=== PATIENT | female | born 1975 | race Caucasian/White ===

== ENCOUNTER 2018-08-09 18:58 | Emergency (ER) | payer MEDICAID ==
[~2018-08-09] VITALS: Ht 152.4 cm; Wt 69.3 kg
[~2018-08-09 18:58] MED LIST: CALC600T5 PO; FIORICET PO; FURO20TA3 PO; NIFE30TA66 PO; PRENAT PO
[2018-08-09 19:33] VITALS: Ht 152.4 cm; Wt 69.3 kg
[2018-08-09] MEDS ORDERED: KETOROLAC 30 MG INJ IM STA (21:34)
[2018-08-09] MEDS ORDERED: ONDANSETRON (ODT) 4 MG TAB ODT STA (21:34)
[2018-08-09] MEDS ORDERED: BUTA1CAP38 PO (22:17)
[2018-08-09] MEDS ORDERED: IBUP-1542 PO (22:17)
[2018-08-09] MEDS ORDERED: ONDA4TAB14 PO (22:18)
--- NOTE | 2018-08-09 22:21 | ERD ---
ER Documentation Chief Complaint Chief Complaint right side headache x5 days. +nausea HPI 42-year-old female presents for headache times 5 days. She states that she has nausea however denies vomiting. She states that the headache is 6 out of 10 the right side of her head mostly. She has had prior similar symptoms in the past. She denies significant past medical history. She tried 2 Advils at home without relief. ROS All systems reviewed and are negative except as per history of present illness. Medications Home Meds Active Scripts Ondansetron (Ondansetron Odt) 4 Mg Tab.rapdis, 4 MG PO Q6H PRN for NAUSEA AND/OR VOMITING, #15 TAB Prov:BONNIE HOPPER 08/09/18 Mjghcbjwxx-Bvteffrllprzu-Oelzpquv* (Fioricet*) 50-300-40 Mg Capsule, 1 CAP PO Q4H PRN for HEADACHE, #30 CAP Prov:BONNIE HOPPER 08/09/18 Ibuprofen* (Motrin*) 600 Mg Tab, 600 MG PO Q6H PRN for PAIN, #30 TAB Prov:HOPPERBONNIE 08/09/18 Nifedipine* (Procardia XL*) 30 Mg Tabsr, 30 MG PO BID for 30 Days, TAB Prov:MOSES CARMICHAEL 07/19/15 Furosemide* (Furosemide*) 20 Mg Tablet, 20 MG PO DAILY for 5 Days, TAB Prov:MOSES CARMICHAEL 07/19/15 Acetamin/Butalbital/Caffeine* (Fioricet*) 1 Tab Tab, 2 TAB PO Q4H PRN for PAIN LEVEL 6-10, #40 TAB Prov:MOSES CARMICHAEL 07/19/15 Reported Medications Calcium Carbonate (CALCIUM) 600 Mg Tablet, 600 MG PO DAILY, TAB 07/12/15 Multivit/Min/Fol Ac/Iron/Pren* ( S*) 1 Tab Tab, 900 TAB PO DAILY, TAB 04/21/15 Allergies Allergies: Coded Allergies: No Known Drug Allergies (Unverified Allergy, Unknown, 08/09/18) PMhx/Soc Medical and Surgical Hx: pt denies Medical Hx, pt denies Surgical Hx History of Surgery: No Anesthesia Reaction: No Hx Neurological Disorder: No Hx Respiratory Disorders: No Hx Cardiac Disorders: No Hx Psychiatric Problems: No Hx Miscellaneous Medical Probl: No Hx Alcohol Use: No Hx Substance Use: No Hx Tobacco Use: No Smoking Status: Never smoker Physical Exam Vitals Vital Signs Date Temp Pulse Resp B/P (MAP) Pulse Ox O2 O2 Flow FiO2 Time Delivery Rate 08/09/18 98.6 87 16 128/72 99 19:33 (90) Physical Exam Const: No acute distress Head: Atraumatic, no temporal area tenderness to palpation Eyes: Normal Conjunctiva, pupils equal, round, reactive to light bilaterally ENT: Normal External Ears, bilateral tympanic membrane intact without junior thema or bulging noted, Nose and Mouth. No tonsillar swelling or exudate noted Neck: Full range of motion. No meningismus, no bruits noted Resp: Clear to auscultation bilaterally Cardio: Regular rate and rhythm, no murmurs, bilateral radial and dorsalis pedis pulses intact Skin: No petechiae or rashes Ext: No cyanosis, or edema, 5 out of 5 muscular bilateral upper and lower extremities Neur: Awake and alert, bilateral upper and lower extremity sensation intact Psych: Normal Mood and Affect Results 24 hrs Laboratory Tests Test 08/09/18 21:54 POC Beta HCG, Qualitative NEGATIVE Current Medications Medications Dose Sig/Oneyda Start Time Status Last (Trade) Ordered Route PRN Stop Time Admin Dose Reason Admin Ketorolac 30 mg ONCE STAT 08/09/18 DC 08/09/18 Tromethamine IM 21:34 21:54 (Toradol) 08/09/18 21:36 Ondansetron 4 mg ONCE STAT 08/09/18 DC 08/09/18 HCl (Zofran ODT 21:34 21:45 Odt) 08/09/18 21:36 Procedures/MDM Medical Decision Making: Differential diagnosis includes but not limited to primary headache, subarachnoid hemorrhage, meningitis, temporal arteritis, glaucoma, hypertension, cerebral ischemia, carotid or vertebral arterial dissection, brain tumor. Patient appeared well on physical examination, nontoxic appearing. No history of fever. There is low suspicion for meningitis. Given patient's age and no temporal area tenderness to palpation, low suspicion for temporal arteritis. Patient has no vision changes and pupils are reactive bilaterally, low suspicion for glaucoma. There is also no focal neurologic deficits to suggest a brain tumor. Patient has normal sensation and muscle strength, low suspicion for cerebral ischemia. Given headache is similar to prior headaches, patient possibly has a primary headache. In the ER patient given Toradol Symptoms improved with treatment. Patient given prescription for Motrin and Fioricet Patient advised to follow up with PCP in 1-2 days. Patient advised to return to ED for new or worsening symptoms. Patient stable on discharge from the ED. Disclaimer: Inadvertent spelling and grammatical errors are likely due to EHR/dictation software use and do not reflect on the overall quality of patient care. Also, please note that the electronic time recorded on this note does not necessarily reflect the actual time of the patient encounter. Departure Diagnosis: Primary Impression: Headache Headache type: unspecified Headache chronicity pattern: unspecified pattern Intractability: not intractable Qualified Codes: R51 - Headache Condition: Fair Patient Instructions: Self-Care for Headaches Referrals: [facility] YOU HAVE RECEIVED A MEDICAL SCREENING EXAM AND THE RESULTS INDICATE THAT YOU DO NOT HAVE A CONDITION THAT REQUIRES URGENT TREATMENT IN THE EMERGENCY DEPARTMENT. FURTHER EVALUATION AND TREATMENT OF YOUR CONDITION CAN WAIT UNTIL YOU ARE SEEN IN YOUR DOCTORS OFFICE WITHIN THE NEXT 1-2 DAYS. IT IS YOUR RESPONSIBILITY TO MAKE AN APPOINTMENT FOR FOLOW-UP CARE. IF YOU HAVE A PRIMARY DOCTOR --you should call your primary doctor and schedule an appointment IF YOU DO NOT HAVE A PRIMARY DOCTOR YOU CAN CALL OUR PHYSICIAN REFERRAL HOTLINE AT IF YOU CAN NOT AFFORD TO SEE A PHYSICIAN YOU CAN CHOSE FROM THE FOLLOWING [facility] [address] [facility]. [facility] [address] [facility] [facility] [address] [facility] [facility] [address] [facility]. [facility] [address] [facility]. [facility]. [address] Additional Instructions: Call your primary care doctor TOMORROW for an appointment during the next 1-2 days.See the doctor sooner or return here if your condition worsens before your appointment time. Llame al doctor MAANA y anisa qamar CHANELL PARA DENTRO DE 1-2 SANCHEZ.Dgale a la secretaria que nosotros le instruimos hacer esta chanell.Avise o llame si terrazas condicin se empeora antes de la chanell. Regresa aqui si peor o no mejor. BONNIE HOPPER DO Aug 09, 2018 22:21
[2018-08-09 22:29] VITALS: BP 118/72; PULSE 67; RESP 20
== END 2018-08-09 22:30 | disposition home or self-care (01) ==
LOC: FTE 18:58
DX: R51 Headache (principal); R11.0 Nausea
CPT/HCPCS: 81025; 96372; J1885; Z7502; Z7610